=== PATIENT | male | born 1935 | race Caucasian/White ===

== ENCOUNTER 2017-10-26 14:05 | Emergency (ER) | payer MEDICARE ==
[~2017-10-26] VITALS: Ht 182.9 cm; Wt 94.0 kg
[2017-10-26 14:30] VITALS: BP 133/80
[2017-10-26] MEDS ORDERED: DIPH,PERTUSS(ACELL),TET VAC/PF 0.5 ML IM-VACC ONE ×2 (15:00→16:13)
[2017-10-26 15:29] LABS: BASOPHILS # (AUTO) 0.03 x10^3/uL (0-0.1); BASOPHILS % (AUTO) 0 % (0-1); EOSINOPHILS # (AUTO) 0.03 x10^3/uL (0-0.4); EOSINOPHILS % (AUTO) 0 % (1-7); LYMPHOCYTES % (AUTO) 19 % (22-44); MD NO; MEAN CORPUSCULAR HEMOGLOBIN 31.7 pg (27.5-34.5); MEAN CORPUSCULAR HGB CONC 34.5 g/dL (33.2-36.2); MEAN CORPUSCULAR VOLUME 91.9 fL (81-97); MEAN PLATELET VOLUME 7.5 fL (7.4-10.4); MONOCYTES # (AUTO) 0.64 x10^3/uL (0.2-0.8); MONOCYTES % (AUTO) 9 % (2-9); NEUTROPHILS # (AUTO) 5.34 x10^3/uL (1.8-6.8); NEUTROPHILS % (AUTO) 72 % (42-75); PLATELET COUNT 215 x10^3/uL (130-400); RED BLOOD COUNT 4.88 x10^6/uL (4.38-5.82); RED CELL DISTRIBUTION WIDTH 14.5 % (9.4-14.8)
[2017-10-26 15:34] LABS: INTERNATIONAL NORMALIZED RATIO 1.07 (0.93-1.1)
[2017-10-26 15:37] LABS: ALBUMIN 3.6 g/dL (3.4-5.0); ANION GAP 9 mmol/L (5-15); CALCIUM 9.1 mg/dL (8.5-10.1); CHLORIDE 110 mmol/L (98-107)
[2017-10-26 15:38] LABS: CREATININE 1.19 mg/dL (0.7-1.3)
[2017-10-26] MEDS ORDERED: LIDOCAINE-MPF 1%, 2ML ONE (16:13)
[2017-10-26] MEDS ORDERED: BACITRACIN ZINC OINT 500U/GM, 0.9 GM ONE (16:13)
[2017-10-26] MEDS ORDERED: LIDOCAINE-MPF 2% ,5ML ONE (16:15)
[2017-10-26] MEDS ORDERED: LIDOCAINE-MPF 1%, 5ML INFIL ONE (16:30)
== END 2017-10-26 17:41 | disposition home or self-care (01) ==
LOC: ED 15:00
DX: S01.111A Laceration without foreign body of right eyelid and periocular area, initial encounter (principal); S40.011A Contusion of right shoulder, initial encounter; S50.811A Abrasion of right forearm, initial encounter; S80.211A Abrasion, right knee, initial encounter; Z86.718 Personal history of other venous thrombosis and embolism; W01.198A Fall on same level from slipping, tripping and stumbling with subsequent striking against other object, initial encounter; Y93.89 Activity, other specified; Y92.009 Unspecified place in unspecified non-institutional (private) residence as the place of occurrence of the external cause; Y99.8 Other external cause status
CPT/HCPCS: 36415; 70450; 72125; 80048; 82040; 85025; 85610; 85730; 90471; 90715; 93005; 99285